=== PATIENT | female | born 1975 | race Caucasian/White ===

== ENCOUNTER 2017-12-05 08:12 | Day surgery (SDC) | payer BC ==
[~2017-12-05 08:12] MED LIST: Lidocaine 1%/Sod Bicarbonate in NS 8.4% 1 ML Syringe IDERM PRN; Sodium Chloride 0.9% 10 ML Syringe FLUSH PRN
[2017-12-05] MEDS ORDERED: Propofol 200 MG/20 ML SDV ONE (08:23)
[2017-12-05] MEDS ORDERED: Midazolam 1 MG/ML 2 ML SDV ONE (08:23)
[2017-12-05] MEDS ORDERED: Rocuronium 50 MG/5 ML Vial ONE (08:23)
[2017-12-05] MEDS ORDERED: fentaNYL 250 MCG/5 ML SDV ONE (08:23)
[2017-12-05] MEDS ORDERED: Ondansetron 4 MG/2 ML SDV ONE (08:23)
[2017-12-05] MEDS ORDERED: Lidocaine 1% 4 ML ONE (08:24)
[2017-12-05] MEDS ORDERED: ceFAZolin 1 GM Vial ONE (08:24)
[2017-12-05] MEDS ORDERED: Ketorolac 30 MG/ML SDV ONE (08:24)
[2017-12-05] MEDS: Lactated Ringers 1,000 ML IV SCH ×2 (08:55→12:13)
--- NOTE | 2017-12-05 09:11 | PCM.PREANE ---
Preanesthetic Assessment - Anesthesia/Transfusion/Family Hx Anesthesia History: Prior Anesthesia Without Reaction Family History of Anesthesia Reaction: No Transfusion History: No Prior Transfusion(s) Intubation History: Unknown - Review of Systems General: No Symptoms Pulmonary: No Symptoms (Smoker: 1/2 PPD times 25 years/Asthma-inhaler used every day.) Cardiovascular: No Symptoms Gastrointestinal: No Symptoms (GERD), Diarrhea Neurological: No Symptoms, Seizure (as a child) Other: Reports: Sinus Problem, Depression, Anxiety - Physical Assessment NPO Status Date: 12/04/17 NPO Status Time: 22:30 Pulse: 81 O2 Sat by Pulse Oximetry: 94 Respiratory Rate: 16 Blood Pressure: 118/68 Temperature: 36.6 C Height: 1.65 m Weight: 87.997 kg ASA Class: 2 Mental Status: Alert & Oriented x3 Airway Class: Mallampati = 2 Dentition: Reports: Normal Dentition, Caries Thyro-Mental Finger Breadths: 3 Mouth Opening Finger Breadths: 3 ROM/Head Extension: Full Lungs: Clear to Auscultation, Normal Respiratory Effort Cardiovascular: Regular Rate, Regular Rhythm, No Murmurs - Lab Values: Laboratory Last Values Urine Color Yellow (Yellow) 12/05/17 08:25 Urine Appearance Clear (Clear) 12/05/17 08:25 Urine pH 7.0 (5.0-8.0) 12/05/17 08:25 Ur Specific Carbon 1.025 (1.005-1.030) 12/05/17 08:25 Urine Protein Negative (Negative) 12/05/17 08:25 Urine Glucose (UA) Negative (Negative) 12/05/17 08:25 Urine Ketones Negative (Negative) 12/05/17 08:25 Urine Occult Blood Trace-lysed (Negative) H 12/05/17 08:25 Urine Nitrite Negative (Negative) 12/05/17 08:25 Urine Bilirubin Negative (Negative) 12/05/17 08:25 Urine Urobilinogen 0.2 (0.2-1.0) 12/05/17 08:25 Ur Leukocyte Esterase Negative (Negative) 12/05/17 08:25 Urine HCG, Qual Negative (NEGATIVE) 12/05/17 08:25 Above lab values reviewed and noted and within acceptable ranges to proceed with scheduled procedure. - Allergies Allergies/Adverse Reactions: Allergies Allergy/AdvReac Type Severity Reaction Status Date / Time latex Allergy Hives Verified 12/04/17 14:09 - Anesthesia Plan Pre-Op Medication Ordered: None - Acknowledgements Anesthesia Type Planned: General Anesthesia Pt an Appropriate Candidate for the Planned Anesthesia: Yes Alternatives and Risks of Anesthesia Discussed w Pt/Guardian: Yes Pt/Guardian Understands and Agrees with Anesthesia Plan: Yes PreAnesthesia Questionnaire HEENT History: Reports: None Cardiovascular History: Reports: None Respiratory History: Reports: Asthma, Sleep Apnea, SOB Genitourinary History: Reports: STD VENTILATED RIB FITTER History: Reports: Endometriosis, , Other (See Below) Other OB/BYN History: IUD strings lost, premenstrual dysphoric syndrome Musculoskeletal History: Reports: None Neurological History: Reports: None Psychiatric History: Reports: Anxiety, Depression Endocrine/Metabolic History: Reports: None Hematologic History: Reports: None Immunologic History: Reports: None Oncologic (Cancer) History: Reports: None Dermatologic History: Reports: None - Past Surgical History HEENT Surgical History: Reports: None Cardiovascular Surgical History: Reports: None Respiratory Surgical History: Reports: None GI Surgical History: Reports: Hernia, Inguinal, Hernia Repair/Other Female Surgical History: Reports: Section, Other (See Below) Other Female Surgeries/Procedures: c section, laparoscopy Endocrine Surgical History: Reports: None Neurological Surgical History: Reports: None Musculoskeletal Surgical History: Reports: None Oncologic Surgical History: Reports: None Dermatological Surgical History: Reports: None - SUBSTANCE USE Smoking Status *Q: Current Every Day Smoker Recreational Drug Use History: No - HOME MEDS Home Medications: Home Meds ALPRAZolam [Alprazolam] 0.25 mg PO Q8H PRN 12/04/17 [History] Albuterol Sulfate [Proair Hfa] 1 - 2 puff INH Q4H PRN 12/04/17 [History] Calc/D3/Mag/Zn/Microbiology Lab Manager/[place] [Calcium 600 MG Plus Vit D] 1 tab PO DAILY [History] Cetirizine [ZyrTEC] 10 mg PO DAILY 12/04/17 [History] Triamterene/Hydrochlorothiazid [Triamterene-HCTZ 37.5-25 MG] 1 cap PO DAILY [History] Vitamin B Complex [B Complex] 1 tab PO DAILY 12/04/17 [History] - CURRENT (IN HOUSE) MEDS Current Meds: Current Medications Lactated Ringer's (Ringers, Lactated) 1,000 mls @ 125 mls/hr IV ASDIRECTED CHERIE Stop: 12/05/17 23:00 Lidocaine/Sodium Bicarbonate (Buffered Lidocaine 1% In Ns 8.4%) 0.25 ml IDERM ONETIME PRN PRN Reason: Prior to IV Start Stop: 12/05/17 18:00 Sodium Chloride (Saline Flush) 10 ml FLUSH ASDIRECTED PRN PRN Reason: Keep Vein Open Stop: 12/05/17 18:00 Discontinued Medications Cefazolin Sodium (Ancef) Confirm Administered Dose 2 gm .ROUTE .STK-MED ONE Stop: 12/05/17 08:25 Fentanyl (Sublimaze) Confirm Administered Dose 250 mcg .ROUTE .STK-MED ONE Stop: 12/05/17 08:24 Lidocaine HCl (Xylocaine-Mpf 1%) Confirm Administered Dose 4 mls @ as directed .ROUTE .STK-MED ONE Stop: 12/05/17 08:25 Ketorolac Tromethamine (Toradol) Confirm Administered Dose 30 mg .ROUTE .STK- MED ONE Stop: 12/05/17 08:25 Midazolam HCl (Versed 1 Mg/Ml) Confirm Administered Dose 2 mg .ROUTE .STK-MED ONE Stop: 12/05/17 08:24 Ondansetron HCl (Zofran) Confirm Administered Dose 4 mg .ROUTE .STK-MED ONE Stop: 12/05/17 08:24 Propofol (Diprivan 20 Ml) Confirm Administered Dose 200 mg .ROUTE .STK-MED ONE Stop: 12/05/17 08:24 Rocuronium [place] (Zemuron) Confirm Administered Dose 50 mg .ROUTE .STK-MED ONE Stop: 12/05/17 08:24
[2017-12-05] MEDS: Bupivacaine 0.5% 30 ML SDV ONE ×2 (10:07→10:27)
[2017-12-05] MEDS ORDERED: HYDROmorphone 0.5 MG/0.5 ML Syringe ONE ×2 (10:07→10:08)
[2017-12-05] MEDS ORDERED: Lactated Ringers 1,000 ML ONE (10:14)
[2017-12-05] MEDS ORDERED: Dexamethasone 4 MG/ML 5 ML MDV ONE (10:15)
[2017-12-05] MEDS ORDERED: fentaNYL 100 MCG/2 ML SDV ONE (11:30)
[2017-12-05] MEDS ORDERED: HYDROmorphone 0.5 MG/0.5 ML Syringe IVPUSH PRN (11:41)
[2017-12-05] MEDS ORDERED: fentaNYL 100 MCG/2 ML SDV IVPUSH PRN (11:41)
--- NOTE | 2017-12-05 11:43 | PCM.POSTAN ---
POST ANESTHESIA ASSESSMENT - MENTAL STATUS Mental Status: Alert, Oriented - VITAL SIGNS Pulse Rate: 100 SaO2: 94 Resp Rate: 17 Blood Pressure: 115/71 Temperature: 36.9 C - RESPIRATORY Respiratory Status: Respiratory Rate WNL, Airway Patent, O2 Saturation Stable, Supplemental Oxygen - CARDIOVASCULAR CV Status: Pulse Rate WNL, Blood Pressure Stable - GASTROINTESTINAL GI Status: No Symptoms - PAIN Pain Score: 0 - POST OP HYDRATION Hydration Status: Adequate & Stable - OBSERVATIONS Free Text/Narrative:: no anesthesia complications noted
--- NOTE | 2017-12-05 12:03 | PCM.OPNOTE ---
- General Post-Op/Procedure Note Date of Surgery/Procedure: 12/05/17 Operative Procedure(s): Laparoscopic right salpingo-oophorectomy, lysis of adhesions, hysteroscopy with dilation and curettage and removal of Mirena IUD Findings: Overall normal-appearing uterus, normal-appearing bilateral fallopian tubes, right ovary with suspected hemorrhagic cyst but otherwise normal in appearance, left ovary with multiple ovarian cysts present, right-sided adhesions near laparoscopic port site that were taken down, anterior adhesions from the uterus to the anterior abdominal wall near the bladder reflection, normal-appearing appendix, normal-appearing visualized portions of bowel, normal-appearing cervix , Mirena IUD visualized with the hysteroscope and appeared intact on removal Pre Op Diagnosis: Complex ovarian cyst of the right ovary, Mirena IUD with lost strings and unable to remove in the office Post-Op Diagnosis: Same Anesthesia Technique: General ET Tube Primary Surgeon: Don Francisco Anesthesia Provider: Willie Plata Haulage Engine Operator: Les Shelby Haulage Engine Operator: Edwina Watt Reason Haulage Engine Operator Was Necessary: Patient safety and reduction of morbidity and mortality Role of Haulage Engine Operator: Laparoscopic skills for the laparoscopic portion of the case Pathology: 1. Right fallopian tube and ovary 2. endometrial curettings Fluid Replacement, Intraop: 1,800 Output, Urine Amount: 0 (Voided prior to procedure) EBL in mLs: 10 Complications: None Condition: Good Free Text/Narrative:: The patient was seen in the preoperative holding area and risks, benefits, indications, and alternatives of the procedure were reviewed with the patient and she desired to proceed with a laparoscopic salpingo-oophorectomy and the right side, dilation and curettage, hysteroscopy and removal of IUD. Consents were reviewed. The patient was taken back to the OR and given general anesthesia with an endotracheal tube which was placed without difficulty. She was placed in dorsal lithotomy position using Yellofin stirrups. She was prepped and draped in normal sterile fashion. A sponge stick was placed inside the vagina for manipulation of the uterus. Attention was then turned to her umbilicus where a previous laparoscopic scar was visualized. This was injected with 0.5% Marcaine and a 5 mm stab incision was made with a scalpel and a Veress needle was then inserted through the incision. The gas was turned on, with an opening pressure of 4 mmHg. Pneumoperitoneum was continued until 15 mmHg pressure. A 5 mm trocar was then inserted under direct visualization through the incision without difficulty. A global view of the abdomen was taken and noted to be overall free of adhesions. Attention was then turned to the suprapubic area and the skin was injected with local anesthetic. A skin incision was made using a scalpel. A 12 mm trocar was then inserted under direct visualization with laparoscope. A global view of the abdomen was then taken and noted to be overall normal in appearance. Attention was then turned to the right side of the abdomen and a avascular area in the right lower quadrant and the abdomen was visualized and injected with local anesthetic. A scalpel was used to make a stab incision. A 5 mm trocar was then placed and was inspected for placement of the trocar. On inspection there is noted to be an adhesion with omentum under the insertion site of the trocar. The trocar was left in place to visualize the possible injured area. Attention was then turned to the left lower quadrant of the abdomen and an avascular space was visualized. The skin was injected with local anesthetic and a stab incision was made with scalpel. A 5 mm trocar was inserted under direct visualization without difficulty. Attention was then turned to the right lower quadrant trocar and the adhesion was taken down using a harmonic scalpel. Care was taken to ensure that there was not any bowel near the trocar insertion site. The adhesion was taken down from the anterior abdominal wall around the entirety of the trocar and the length of the tunnel of the trocar was inspected and noted to be free of any intestinal tissue. The omentum was then further inspected and noted to have no injury to the intestinal tissue and that there is no intestinal tissue near the site of the trocar injury. Additional inspection was then performed using grasping instruments to further evaluate the omentum for bleeding and other possible injury to the bowel. Hemostasis was assured. There is no evidence of injury to the bowel. Decision was made to proceed with the case as planned. Attention was then turned to the pelvis where a normal uterus and bilateral fallopian tubes were noted. The right ovary appeared to have a hemorrhagic cyst present in the ovary which is likely what was seen on the ultrasound. The left ovary had multiple ovarian cysts present but was otherwise normal in appearance. A Harmonic scalpel was then used to transect the ovarian artery on the right side. Hemostasis was assured. The Harmonic scalpel was then used to transect the fallopian tube and ovary from the underlying tissue to the insertion point of the fallopian tube. The fallopian tube was then transected using the Harmonic scalpel and the fallopian tube and ovary were placed in the anterior cul-de-sac. There is a small amount of bleeding from the surgical bed that was cauterized using the Harmonic scalpel and hemostasis was assured. The fallopian tube and ovary were then placed in a Endo Catch bag and removed from the abdomen without difficulty. The pelvis was further explored and noted to have hemostasis. There was noted to have some small adhesions from the anterior uterine wall to the anterior abdominal wall near the uterovesical reflection. This was taken down using the Harmonic scalpel. The right adnexa was further explored and hemostasis was again noted. Attention was then turned to the previous omental injury sites and hemostasis was again noted. The 12 mm suprapubic trocar was then removed and a Justus-Danae closure device was used to close the fascia using 0 Vicryl suture. The remaining laparoscopic ports were removed under direct visualization and hemostasis was noted. The gas was then evacuated from the peritoneum and the umbilical trocar was removed. The suprapubic port site was closed with 2-0 chromic for the subcutaneous tissue to close the defect that had formed from the 12 mm port. The skin was reapproximated with running suture of 4-0 Monocryl. The remaining ports were closed using 4-0 Monocryl with interrupted sutures and Dermabond. The the laparoscopic portion of the case was completed at this time and all instruments were removed. Attention was then turned to the perineum. The sponge stick was removed from the vagina. A nicholas-speculum and retractor was placed in the vagina and the cervix was visualized. The anterior lip of the cervix was grasped with a single toothed tenaculum. The cervix was serially dilated to a size 6 Nish dilator. A 5 mm hysteroscope was inserted into the uterine cavity and advanced to the uterine fundus. The strings and IUD were visualized within the uterine cavity. The uterine cavity was noted to be grossly normal in appearance. The hysteroscope was removed and a polyp forceps was used to grasp the strings of the IUD and it was removed without difficulty. The IUD was inspected and noted to be intact. A sharp curette was used to circumferentially curette the entirety of the uterine cavity where good cri was present in all directions. The curettings were sent for pathology. The procedure was complete at this time and the tenaculum was removed from the cervix and good hemostasis was noted from the tenaculum sites. All instruments were removed from the vagina. All needle and sponge counts were correct x 2. The patient was awoken and taken back to the recovery room in stable condition. The patient was awoken from general anesthesia and taken to the PACU for recovery in stable condition. She will be discharged to home once she is able to meet all postoperative milestones including tolerating small amount of oral intake and liquids, ambulate without difficulty, her pain controlled with oral medications and able to void without difficulty. She will follow-up in the clinic in 2 weeks or earlier as needed. Sponge, lap, needle, and instrument counts were correct x 2.
[2017-12-05] MEDS ORDERED: Acetaminophen/oxyCODONE 325-5 MG Tab PO PRN (12:26)
== END 2017-12-05 13:42 | disposition home or self-care (01) ==
LOC: JD.SDS 08:12
PROVIDERS: ATTEND Obstetrics & Gynecology
DX: N83.11 Corpus luteum cyst of right ovary (principal); N73.6 Female pelvic peritoneal adhesions (postinfective); T83.32XA Displacement of intrauterine contraceptive device, initial encounter; J45.909 Unspecified asthma, uncomplicated; G47.30 Sleep apnea, unspecified; F32.9 Major depressive disorder, single episode, unspecified; F32.89 Other specified depressive episodes; F41.9 Anxiety disorder, unspecified; F17.200 Nicotine dependence, unspecified, uncomplicated; Z91.040 Latex allergy status; Z79.899 Other long term (current) drug therapy
CPT/HCPCS: 36415; 58562; 58661; 81003; 81025; 86850; 86900; 86901; A9270; J0690; J1100; J1170; J1885; J2250; J2405; J2704; J3010; J3490; J7120; 00840; 88305; J2001